=== PATIENT | male | born 2000 | race Caucasian/White ===

== ENCOUNTER 2018-07-15 16:24 | Emergency (ER) | payer BC ==
[~2018-07-15] VITALS: Ht 190.5 cm; Wt 86.4 kg
[2018-07-15 16:36] VITALS: BP 141/87; PULSE 105; TEMP 98.1
== END 2018-07-15 17:51 | disposition home or self-care (01) ==
LOC: COL.ER 16:24
DX: S02.2XXA Fracture of nasal bones, initial encounter for closed fracture (principal); W50.0XXA Accidental hit or strike by another person, initial encounter; Y93.67 Activity, basketball